=== PATIENT | female | born 1990 | race Caucasian/White ===

== ENCOUNTER 2018-07-15 02:29 | Inpatient (IN) | payer OTHER ==
[2018-07-15] VITALS (57 sets, daily range): BP systolic 86–142; BP diastolic 50–81; PULSE 69–146; TEMP 98–99.6
[~2018-07-15] VITALS: Ht 167.6 cm; Wt 104.5 kg
--- NOTE | 2018-07-15 02:40 | NUR ---
To unit via wheelchair, accompanied by spouse, for Labor Assessment. PT reports SROM @0100. Oriented to room, monitor, plan of care. Questions invited and answered.
[2018-07-15 03:35] LABS: BASO # 0.1 (0.0-0.2); BASO % 0.3 % (0.0-2.0); EOS # 0.1 (0.0-0.7); EOS % 0.7 % (0-4.0); GRAN # 11.2 (1.4-6.5); GRAN % 70.6 % (42.2-75.2); HEMOGLOBIN 10.4 g/dl (12.5-16.0); LYMPH # 3.2 (1.2-3.4); LYMPH % 20.1 % (20.0-51.0); MEAN CELL VOLUME 91 fl (80.0-100.0); MEAN CORPUSCULAR HEMOGLOBIN 31 pg (27.0-31.0); MEAN CORPUSCULAR HGB CONC 34 g/dl (33.0-37.0); MEAN PLATELET VOLUME 11.7 fl (7.4-10.4); MONO # 1.2 (0.1-0.6); MONO % 7.7 % (1.7-9.3); PLATELET COUNT 214 K/mm3 (130-400); RED BLOOD COUNT 3.39 M/mm3 (4.10-5.30); REDCELL DISTRIBUTION WIDTH-CV 13.3 % (11.5-14.5)
[2018-07-15 03:37] LABS: HEMATOCRIT 30.9 % (37.0-47.0)
[2018-07-15] MEDS ORDERED: PRENATAL VITAMI1 T12 PO (03:51)
--- NOTE | 2018-07-15 05:10 | NUR ---
SVE with no changes noted. Discuss plan of care for augmenting labor with Pitocin. Pt reports "My IV really hurts, can it be started somewhere else?" INT to L hand flushes well, tender to palpation, no redness noted. DC'd
--- NOTE | 2018-07-15 06:45 | NUR ---
Intermittent tracing of FHT's , nurse at bedside readjusting monitor. Will continue to monitor
--- NOTE | 2018-07-15 07:45 | NUR ---
Patient up to restroom.
--- NOTE | 2018-07-15 08:15 | NUR ---
at patient bedside discuss plan of care with pitocin and epidural, encouraged questions and answered. will continue to monitor.
--- NOTE | 2018-07-15 08:30 | NUR ---
Patient request epidural at this time, Gurdeep Miles CRNA notified for patient request.
--- NOTE | 2018-07-15 08:44 | NUR ---
Gurdeep Miles PLAN CHECKER in room, patient up to edge of bed for placement of epidural, patient states understaindg 0839- Single dose given. patient tolerated well 0845- Patient laid down in wedge left. will continue to monitor.
--- NOTE | 2018-07-15 09:45 | NUR ---
Intermittent variables noted with incomplete tracings of FHT's, patient repostioned with monitors adjusted.Nurse at bedside during monitoring. Will continue to monitor.
--- NOTE | 2018-07-15 10:00 | NUR ---
0947- FHR down to 70 bpm with intermittent tracing of FHT's with moderate variability over 4 minutes, nurse at bedside, readjusting monitor. 1000- on floor, reviews FHR tracing. Will continue to monitor.
--- NOTE | 2018-07-15 11:45 | NUR ---
Patient states she is having alot of pressure, sve completed noted with change of 9/100/+1. Patient tolerated well, lots of bloody show noted. Patient reports feeling pressure more intense. Patient sat in upright position. Will continue to monitor notified of change.
--- NOTE | 2018-07-15 12:30 | NUR ---
Patient begins to push with contractions, spouse at bedside. Mckenzie removed, patient noted complete. Nurse remains at bedside.
--- NOTE | 2018-07-15 13:00 | NUR ---
1245- Dr. Saldana notified patient has begun to push, will continue to monitor.
--- NOTE | 2018-07-15 13:30 | NUR ---
updated on patient status, attempt at pushing, noted with caput with pushing still remaining at 1+ station, patient poor pusher. Per place patient into rotational postion high on left and right side with leg in stirrup across body, reasses in 30 minutes.
--- NOTE | 2018-07-15 13:33 | NUR ---
Dr. Saldana update on patient status, pushing 45 minutes without progression. Patient did labor own for approximately 30 minutes. Advised by to rotate patient. Will continue to monitor
--- NOTE | 2018-07-15 14:30 | NUR ---
Dr. Saldana called and updated on patient status, instructed to continue pushing. Will continue pushing with patient.
--- NOTE | 2018-07-15 16:00 | NUR ---
1547- notified for need for delivery, room prepped, nursery RN notified
--- NOTE | 2018-07-15 16:12 | NUR ---
1603-Dr. Saldana in room for delivery, Nursery RN notified. Patient continues to push with Dr. Robbins 1612- Delivery of viable female . Produced immediate cry upon delivery. Infant to mothers abdomen for drying and stimulation. Infant to care of Nursery RN. Cord clamped by Dr. Saldana, cut by father of baby. 1617- Delivery of placenta and repair of 2nd degree lac. 1619- Red Jed to empty bladder and 50ml of urine. Pitocin started per protocol. Fundal massage perfomed as indicated. Will continue to [facility].
--- NOTE | 2018-07-15 19:30 | NUR ---
193 EPID CATH REMOVED. UP TO BR WITH ASSIST AND VOIDED 700CC. PERICARE DONE AND AMB TO 214. OMKAR WELL.
[2018-07-16] VITALS: BP 104/48; PULSE 76; TEMP 98.7
[2018-07-16 08:05] VITALS: BP 114/63; PULSE 80; TEMP 97.7
--- NOTE | 2018-07-16 09:42 | NUR ---
Initial visit; Mom thanked Restorative Aide for offering congratulations and God's blessings for the of her daughter. Restorative Aide thanked mom for choosing our hospital.
[2018-07-16] MEDS ORDERED: IBU800 M1 PO (12:25)
[2018-07-16] MEDS ORDERED: PERCOCET 325 MG1 TA2 PO (12:48)
[2018-07-16 16:46] VITALS: BP 107/68; PULSE 86
== END 2018-07-16 19:00 | disposition home or self-care (01) | DRG 807 ==
LOC: LDRO 02:29 → LDR 03:17 → OB 03:17
PROVIDERS: Obstetrics & Gynecology; ADMIT Student in an Organized Health Care Education/Training Program
PROC: 10E0XZZ Delivery of Products of Conception, External Approach (ICD-10-PCS; principal; 2018-07-15)
PROC: 0KQM0ZZ Repair Perineum Muscle, Open Approach (ICD-10-PCS; 2018-07-15)
DX: O70.1 Second degree perineal laceration during delivery (principal); Z37.0 Single live birth; Z3A.37 37 weeks gestation of pregnancy; O99.214 Obesity complicating childbirth; J45.909 Unspecified asthma, uncomplicated; O75.89 Other specified complications of labor and delivery
CPT/HCPCS: J2590; J2795; J7120

== ENCOUNTER → 2018-07-20 | Outpatient (CLI) | payer OTHER ==
[~2018-07-20] MED LIST: IBU800 M1 PO; PERCOCET 325 MG1 TA2 PO; PRENATAL VITAMI1 T12 PO
--- NOTE | 2018-07-20 17:17 | NUR ---
Pt, Irish Salgado, presents for outpatient consult with five day old baby girl, Sherley Salgado, and her spouse, . Pt c/o nipple soreness, decreased infant output, and low milk supply. Sherley was born on [birth year] by and weighed 7#8.1oz (3405 gms). They discharged after 24 hours of age. Pt reports Sherley is every 1-2 hours, has had ~4-5 voids and 2 stools in the last 24 hours. Sherley has been followed for jaundice by Dr. Fink. Sherley received upto an ounce of formula about 4 times over the weekend. Today Sherley weighs 6#12.7oz (3082 gms, for a 9% wt loss. Pt advised on improving latch, and nurses about 15 min on the right breast, tranfering 26ml and <10 min on the right side, tranfering 6ml for a total gain per post feed weights of 30gms. Because of the feeding pattern and prefernce for nursing on the left side, it is unlikely that Sherley is tranfering this much each feeding. bottle feeds 1oz formula by bottle with pt's permission. A sublingual tongue tie is also observed which causes the tip of the tongue to indent and curl down, likely contributing to pt's nipple soreness. had two brown stools and a void while in consult. POC: Pt advised on 3-step feeding plan to include: only as long as infant is actively nursing, supplementing 1oz after each , and pumping after to improve milk supply. Pt advised to discuss tongue tie with Dr. Fink at her appt. tomorrow. A list of providers that may treat it given to pt. F/U: Well baby check tomorrow with Dr. Fink. Pt to contact by end of week to discuss milk production and plan follow up consult. Pt verbalzies understanding, questions invited and answered.
== END ==
LOC: LAC 15:38
DX: Z39.1 Encounter for care and examination of lactating mother (principal); Z71.89 Other specified counseling

== ENCOUNTER → 2018-07-23 | Outpatient (CLI) | payer OTHER ==
--- NOTE | 2018-07-23 14:06 | NUR ---
Pt, Irish Cordobaloki, presents for consult with 8 day old baby girl, Antoinette Salgado, to evaluate latch and milk transfer. This family was seen 3 days ago by this LC and it was noted Sherley was at 9%wt loss from and Irish had low milk supply. Sherley was born on [birth year] and weighed 7#8.1oz (3405 gms). On 07/20/18 she weighed 6#12.7oz (3082 gms). They have follow the recommended "3-step" plan with breast/bottle/pumping as good as time allows for them. Some feedings pt does not breast, but pumps and bottle feeds. Today Sherley weighs 7#1.3oz (3212 gms) for a gain of 4.6oz in the last 3 days. Her voids and stools now meet expectations as well. Sherley breastfeeds on the right side but pt is pretty uncomfortable with latching. After nursing the nipple has a few moist scabs on the face and a couple small seperation wounds where the nipple meets the areola. It is noted Sherley has a tongue tie, which pt is looking into treatment for. Pt verbalizes understanding that latch pain may not increase without the frenulum revision, but also that there are no guarantees would be perfect with the release. AFter nursing the right side for about 10 minutes Sherley had a weight gain of 20 gms. She is content and pt states she does not think she can get Sherley to wake and latch on second side so she elects to provide EBM by bottle and pump to finish this feeding. This LC feeds Sherley by bottle and she takes 2.2oz easily, for a total intake of 2.9oz per weight. Pt pumps about 1.5oz to save for next supplement. POC: Pt will continue with feeding/pumping/supplement plan, determining feedint to feeding if she well breast or not. F/U: Dr. Lacie Fink next week, with as she determines her needs. Questions invited and answered.
== END ==
LOC: LAC 12:53
DX: Z39.1 Encounter for care and examination of lactating mother (principal); Z71.89 Other specified counseling

== ENCOUNTER → 2018-11-10 | Outpatient (CLI) | payer OTHER | LOC: COL.RAD 07:07 | DX: K80.20 Calculus of gallbladder without cholecystitis without obstruction (principal) ==